=== PATIENT | female | born 1945 | race Caucasian/White ===

== ENCOUNTER → 2016-09-02 | Outpatient (CLI) | payer MEDICARE, OTHER | END | disposition home or self-care (01) | LOC: GMAH 10:21 | PROVIDERS: ATTEND Family Medicine | DX: E78.00 Pure hypercholesterolemia, unspecified (principal) ==

== ENCOUNTER → 2018-02-23 | Outpatient (CLI) | payer MEDICARE, OTHER | LOC: GMAH 17:01 | PROVIDERS: ATTEND Family Medicine | DX: N39.0 Urinary tract infection, site not specified (principal); I10 Essential (primary) hypertension; E78.2 Mixed hyperlipidemia ==

== ENCOUNTER → 2019-03-21 | Outpatient (CLI) | payer MEDICARE, OTHER | LOC: GMA MATASK 10:20 | PROVIDERS: ATTEND Family Medicine | DX: I10 Essential (primary) hypertension (principal); E78.2 Mixed hyperlipidemia ==

== ENCOUNTER → 2019-07-21 | Outpatient (CLI) | payer MEDICARE, OTHER ==
--- NOTE | 2019-07-21 10:50 | RAD ---
EXAM DESCRIPTION: Wrist,Right 3 Views CLINICAL HISTORY: pain in wrist RT COMPARISON: June 23, 2019 IMPRESSION: 3 views of the right wrist again demonstrate comminuted intra-articular fracture of the distal radius with minimal dorsal angulation. Mild impaction of the fracture fragments is again seen with increased density along the fracture margins suggesting partial interval healing. The fracture line persists along the dorsal surface also suggesting incomplete bony union. Nondisplaced ulnar styloid avulsion fracture is again seen. Electronically signed by: Lele Castillo MD 07/21/2019 10:49 AM CDT
== END ==
LOC: RAD 10:22
PROVIDERS: ATTEND Orthopaedic Surgery
DX: S52.571D Other intraarticular fracture of lower end of right radius, subsequent encounter for closed fracture with routine healing (principal); S52.614D Nondisplaced fracture of right ulna styloid process, subsequent encounter for closed fracture with routine healing

== ENCOUNTER → 2019-08-04 | Outpatient (CLI) | payer MEDICARE, OTHER ==
--- NOTE | 2019-08-04 08:24 | RAD ---
Frontal, lateral, and oblique views of the right wrist. Indication: fx distal end of radius Comparison: July 21, 2019 Impression: Distal radial fracture redemonstrated with stable mild dorsal angulation distally and mild impaction. 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 Continued radiographic surveillance recommended. Ulnar styloid fracture noted as well with slightly progressed union but remains incomplete at this time. No new fracture identified. Electronically signed by: Giles Aparicio MD 08/04/2019 8:22 AM CDT
== END ==
LOC: RAD 08:05
PROVIDERS: ATTEND Orthopaedic Surgery
DX: S52.501D Unspecified fracture of the lower end of right radius, subsequent encounter for closed fracture with routine healing (principal); S52.614D Nondisplaced fracture of right ulna styloid process, subsequent encounter for closed fracture with routine healing